=== PATIENT | female | born 1985 | race Caucasian/White ===

== ENCOUNTER 2020-05-31 16:07 | Outpatient (REF) | payer OTHER, SELFPAY | END 2020-05-31 16:08 | disposition home or self-care (01) | LOC: HO.LAB 16:07 | PROVIDERS: Visit Provider Internal Medicine | DX: Z20.822 Contact with and (suspected) exposure to COVID-19 (principal) | CPT/HCPCS: 36415; C9803; U0003 ==

== ENCOUNTER → 2023-08-27 15:27 | Outpatient (BNVA) | payer OTHER, SELFPAY | PROVIDERS: PCP Nurse Practitioner Family; Visit Provider Physician Assistant Surgical ==

== ENCOUNTER 2023-10-02 09:05 | Outpatient (REF) | payer OTHER, SELFPAY | END 2023-10-02 09:06 | disposition home or self-care (01) | LOC: HO.HOSX 09:05 | PROVIDERS: Visit Provider Orthopaedic Surgery | DX: Z13.89 Encounter for screening for other disorder (principal) ==